=== PATIENT | male | born 1980 | race Caucasian/White ===

== ENCOUNTER 2019-02-15 12:13 | Outpatient (CLI) | payer BC ==
--- NOTE | 2019-02-15 14:01 | ULT ---
TESTICULAR ULTRASOUND WITH DOPPLER: HISTORY: N45.1, epididymitis. COMPARISON: None. TECHNIQUE: Real-time, mansfield-scale, color, and spectra analysis of the testicles is performed. FINDINGS: Trace bilateral hydroceles. Echotexture of both testicles is normal, as well as vascularity. No hyp ervascular flow. There is a left-sided varicocele, which increases with Valsalva. IMPRESSION: 1. No evidence of epididymitis. 2. Left-sided varicocele with increase with Valsalva. POS: [facility]
== END 2019-02-15 12:14 | disposition home or self-care (01) ==
LOC: BICULT 12:13
PROVIDERS: ATTEND Family Medicine
DX: N45.1 Epididymitis (principal); I86.1 Scrotal varices
CPT/HCPCS: 76870; 93976

== ENCOUNTER 2020-11-06 19:55 | Emergency (ER) | payer BC | END 2020-11-06 21:10 | disposition home or self-care (01) | LOC: ERS 19:55 | DX: U07.1 COVID-19 (principal); I10 Essential (primary) hypertension; E78.5 Hyperlipidemia, unspecified; Z79.899 Other long term (current) drug therapy | CPT/HCPCS: 99284 ==

== ENCOUNTER 2023-03-02 11:31 | Outpatient (CLI) | payer BC | END 2023-03-02 11:32 | disposition home or self-care (01) | LOC: SCSRAD 11:31 | PROVIDERS: ATTEND Family Medicine | DX: M54.9 Dorsalgia, unspecified (principal); M47.816 Spondylosis without myelopathy or radiculopathy, lumbar region; M46.1 Sacroiliitis, not elsewhere classified; G95.89 Other specified diseases of spinal cord | CPT/HCPCS: 72100 ==